=== PATIENT | male | born 1965 ===

== ENCOUNTER 2019-04-07 05:41 | Inpatient (IN) | payer OTHER ==
[~2019-04-07] VITALS: Ht 177.8 cm; Wt 106.6 kg
--- NOTE | 2019-04-07 05:55 | NUR ---
PATIENT ARRIVED IN UNIT. AO X 3, ABLE TO MAKE NEEDS KNOWN. NO ACUTE DISTRESS NOTED. DENIES ANY PAIN AT THIS TIME. SKIN INTACT. PATIENT SIGNED CONSENT FOR PROCEDURE, ANESTHESIA AND BLOOD TRANSFUSION. VS TAKEN. WAITING FOR RADIOISOTOPE PRODUCTION OPERATOR BY OR.
[2019-04-07] MEDS ORDERED: BACITRACIN 50000 UNITS/VIAL ONE (05:59)
[2019-04-07] MEDS ORDERED: ANESTHESIA TRAY IN PYXIS 1 EA TRAY MC ONE (05:59)
[2019-04-07 06:00] VITALS: BP 154/109
[2019-04-07] MEDS ORDERED: SCOPOLAMINE HBR 1 EA PATCH.TD72 TD ONE (06:26)
[2019-04-07] MEDS ORDERED: MIDAZOLAM HCL 2 MG/2ML VIAL ONE (06:26)
[2019-04-07] MEDS ORDERED: MORPHINE SULFATE/PF 10 MG/10ML (1MG/ML) AMPUL ONE (06:27)
[2019-04-07] MEDS ORDERED: FENTANYL PF 100MCG/2ML AMPUL ONE (06:27)
--- NOTE | 2019-04-07 06:30 | NUR ---
PATIENT PICKED UP BY OR STAFF. IN STABLE CONDITION. BROUGHT DOWN VIA BED.
--- NOTE | 2019-04-07 07:30 | NUR ---
RN MS NOTES Patient remains in surgery at this time.
[2019-04-07] MEDS ORDERED: TRANEXAMIC ACID 3,000 MG in SODIUM CHLORIDE IRRIG SOLUTION 70 ML IR ONE (08:00)
[2019-04-07] MEDS ORDERED: DULCOLAX 10 MG/SUPP.RECT RC PRN (09:30)
[2019-04-07] MEDS ORDERED: TYLENOL 650 MG TABLET PO PRN (09:30)
[2019-04-07] MEDS ORDERED: COLACE 250 MG CAPSULE PO PRN (09:30)
[2019-04-07] MEDS ORDERED: ZOFRAN 4mg/2ML IV PRN (09:30)
[2019-04-07] MEDS ORDERED: SENOKOT 8.6 MG TABLET PO PRN (09:30)
[2019-04-07] MEDS ORDERED: HYDROCODONE/APAP 5/325MG 1 EACH TABLET PO PRN (09:30)
[2019-04-07] MEDS ORDERED: NALOXONE HCL 0.4 MG/ML AMPUL IV PRN (10:00)
[2019-04-07] MEDS ORDERED: diphenhydrAMINE HCL 25 MG CAPSULE PO PRN (10:00)
[2019-04-07] MEDS: IV D5/0.45 NACL 1,000 ML IV PRN ×2 (10:09→20:17)
[2019-04-07] MEDS ORDERED: SIMV20TA6 PO (11:23)
[2019-04-07] MEDS ORDERED: BENA20TA9 PO (11:23)
[2019-04-07] MEDS ORDERED: TRAM50TA2 PO (11:23)
[2019-04-07] MEDS: HYDROMORPHONE 1 MG/1 ML DISP.SYRIN IV PRN ×3 (11:49→21:16)
[2019-04-07] MEDS: ANCEF 1 G in IV D5W 50 ML IV SCH ×2 (15:00→22:47)
[2019-04-07 15:59] VITALS: BP 125/68
[2019-04-07] MEDS ORDERED: ASPIRIN 325 MG TABLET PO SCH (17:00)
--- NOTE | 2019-04-07 18:39 | NUR ---
RN MS CLOSING NOTES Patient remains on room air, no sob noted, a/o x4 and denies pain at this time. Patient stated he wants to stay on the CPM til 1999. Patient to remains on tele for 24 hours. Bed at the lowest setting, call light within reach, side rails up x2. Will give report to NOC RN for [facility] bedside.
--- NOTE | 2019-04-07 19:25 | NUR ---
RN Notes Received patient awake, alert and oriented x4, on room air and tolerated well. Right knee on CPM machine at 40degree flexion and tolerated well with very mild pain as verbalized by the patient. IV access on left hand patent and intact with ongoing IVF infusing well. Plan of care discussed with the patient and verbalized understanding. Safety measures and fall precaution in place. Kept comfortable and attended with call light within reach. Will continue to monitor patient.
[2019-04-07 20:03] VITALS: BP 120/57
--- NOTE | 2019-04-07 21:16 | NUR ---
RN Notes Patient complains of pain on his right knee, 03/01. Dilaudid 1mg given IVP and tolerated well. Will continue to monitor patient.
[2019-04-07 22:00] VITALS: BP 120/57
[2019-04-07] MEDS ORDERED: AMBIEN 5 MG TABLET PO PRN (22:00)
[2019-04-08] MEDS: HYDROMORPHONE 1 MG/1 ML DISP.SYRIN IV PRN ×2 (01:28→07:12)
--- NOTE | 2019-04-08 01:28 | NUR ---
RN Notes Patient awake, verbalized pain on right knee,8/10. Dilaudid 1mg given IVP. Will continue to monitor.
[2019-04-08] MEDS: IV D5/0.45 NACL 1,000 ML IV PRN (04:56)
--- NOTE | 2019-04-08 05:56 | NUR ---
RN Notes Patient tolerated CPM with tolerable pain. Kept right knee elevated on 2 pillows with cold compress on. Patient has allergy to tylenol, norco cannot be given because it has acetamenophen. Pain managed with dilaudid 1 mg IVP with good releif. Vital signs stable, afebrile. Safety measures and fall precaution observed. Will continue to monitor and will endorse accordingly.
--- NOTE | 2019-04-08 07:12 | NUR ---
MS/RN - Assessment Patient is awake, A/O x 4, reports severe pain to right knee op site PA=8/10, medicated with Dilaudid 1 mg IVP, afebrile, stable on room air. Skin is intact except for right knee surgical incision POD#1 right knee arthrotomy with total knee arthroplasty with Dr. Oakes. Right knee dressing is c/d/i without drainage, discharge, surrounding erythema, or excess warmth. Skin on BLE is warm to touch, negative calf tenderness, negative for edema, sensation on both lower ext are intact, full weight bearing on the RLE, knee brace when OOB. IVF D5 1/2 NS at 125 ml/hr infusing well on the left hand with no signs of infiltration. Fall precautions maintained. All needs attended and met. Discussed plan of care with patient and in agreement. Will continue with current medical management.
[2019-04-08 08:00] VITALS: BP 142/74
[2019-04-08] MEDS: RIVAROXABAN 10 MG TABLET PO SCH (08:13)
--- NOTE | 2019-04-08 08:15 | NUR ---
MS/RN - PT treatment Patient was pre-medicated prior to activity, able to ambulate with PT, CPM this afternoon per pt's request.
[2019-04-08] MEDS ORDERED: ASPIRIN 325 MG TABLET PO SCH (09:00)
--- NOTE | 2019-04-08 10:02 | NUR ---
MS/RN - Ortho Seen and examined by JASMIN Nelson of Dr. Oakes, stable per ortho to d/c home today after pm PT, okay for nurse to change dressing prior to d/c if going home today, f/u with Dr Oakes in 1-2 weeks.
[2019-04-08] MEDS: HYDROCODONE/APAP 5/325MG 1 EACH TABLET PO PRN ×2 (13:00→20:52)
[2019-04-08] MEDS ORDERED: HYDROMORPHONE INJ 0.5 MG/0.5 ML SYRINGE IV PRN (14:00)
[2019-04-08] MEDS ORDERED: HYDROMORPHONE 1 MG/1 ML DISP.SYRIN IV PRN (14:11)
--- NOTE | 2019-04-08 14:32 | NUR ---
MS/RN - Notes Patient stated "I don't think I can manage to go home today, I didn't do well with PT activity this afternoon session."
--- NOTE | 2019-04-08 15:45 | NUR ---
MS/RN - Notes Patient noted with elevated temp 101.6F, ice pack and cool cloth applied, encourage to increase fluid intake, light weight bedding. Patient is allergic to Tylenol.
[2019-04-08 16:00] VITALS: BP 126/74
[2019-04-08 16:48] LABS: HEMOGLOBIN 13.1 g/dL (13.5-17.5)
--- NOTE | 2019-04-08 17:00 | NUR ---
MS/RN - MD order Dr. uNnez made aware of elevated temp 101.6F with order to do blood culture x 2 15 mins apart, continue with cooling measures.
--- NOTE | 2019-04-08 18:21 | NUR ---
MS/RN - End of shift summary Patient still febrile latest temp 100.0F, continue cooling measures, right knee pain more controlled with Dilaudid 1 mg IVP alternating with [place] 2 tabs, not in any form of distress. All needs attended and met. Will continue with current plan of care.
--- NOTE | 2019-04-08 19:25 | NUR ---
RN Notes Received patient awake, alert with HOB slightly elevated, on room air and tolerated well. Pain on right knee at tolerable level at this time, 09/29. Right knee kept elevated on 2 pillows, dressing clean, dry and intact. IV access on left hand patent and intact. Noted with low grade fever, Temp 100.3. Cooling measures given. Plan of care discussed with the patient and verbalized understanding. Safety measures in place. Will continue to monitor patient.
[2019-04-08 20:00] VITALS: BP 163/75
--- NOTE | 2019-04-08 20:52 | NUR ---
RN Notes Patient complains of pain on right knee 01/29, [place] 5/325mg tab given PO and tolerated well. Will continue to monitor.
[2019-04-08 22:00] VITALS: BP 163/75
[2019-04-09] MEDS: HYDROCODONE/APAP 5/325MG 1 EACH TABLET PO PRN ×3 (03:30→18:38)
--- NOTE | 2019-04-09 03:30 | NUR ---
RN Notes Patient awake, complains of right knee pain, 01/29. [place] 5/325 mg 2tabs given PO and tolerated well. Latest temp 98.3. Will continue to monitor.
--- NOTE | 2019-04-09 05:57 | NUR ---
RN Notes Latest temp 98.3, controlled with cooling measures. Pain managed with [place] 2 tabs. Right knee kept elevated on pillows. Voiding well with adequate amount. Denies nausea and vomiting. Safety measures maintained. All needs attended. Will continue to monitor.
[2019-04-09 06:09] LABS: BASOPHILS % (AUTO) 0.1 % (0.0-2.0); EOSINOPHILS % (AUTO) 0.6 % (0.0-6.0); HEMATOCRIT 38 % (39-51); HEMOGLOBIN 12.7 g/dL (13.5-17.5); LYMPHOCYTES # (AUTO) 0.9 /CMM (0.8-4.8); MEAN CORPUSCULAR HGB CONC 34 g/dl (31.0-36.0); MEAN CORPUSCULAR VOLUME 94 fL (80-96); MONOCYTES # (AUTO) 1.6 /CMM (0.1-1.30); MONOCYTES % (AUTO) 10.6 % (2.0-12.0); NEUTROPHILS # (AUTO) 12.2 /CMM (1.8-8.9); NEUTROPHILS % (AUTO) 82.7 % (43.0-81.0); PLATELET COUNT (AUTO) 171 /CMM (150-450); WHITE BLOOD COUNT (AUTO) 14.7 K/uL (4.3-11.0)
[2019-04-09 06:57] LABS: CALCIUM, SERUM 8.8 mg/dL (8.5-10.1); CREATININE 0.9 mg/dL (0.6-1.3); MAGNESIUM 1.9 mg/dL (1.8-2.4); PHOSPHORUS 2.4 mg/dL (2.5-4.9); POTASSIUM 3.7 mmol/L (3.5-5.1)
--- NOTE | 2019-04-09 07:30 | NUR ---
RN MS NOTES PT IN BED, AWAKE, ALERT AND ORIENTED, NOT IN DISTRESS, STATED THAT HIS PAIN AT RIGHT KNEE IS BETTER AT 4/10, CALL LIGHT WITHIN REACH.
[2019-04-09 08:11] VITALS: BP 126/68
[2019-04-09] MEDS ORDERED: VANCOMYCIN HCL 1.25 GM in IV D5W 250 ML IV SCH (10:30)
[2019-04-09] MEDS ORDERED: FEE PK DOSING 1 MIN EA MC ONE (10:33)
--- NOTE | 2019-04-09 10:41 | NUR ---
RN MS NOTES PT SEEN AND EXAMINED BY DR. BONILLA, PLAN OF CARE DISCUSSED WITH PT, VERBALIZED UNDERSTANDING, ORDERS GIVEN, NOTED AND CARRIED OUT.
[2019-04-09] MEDS ORDERED: diphenhydrAMINE HCL ELIX 25 MG/10 ML UDC PO PRN (11:00)
[2019-04-09] MEDS ORDERED: NEUTRA PHOS 1 POWD.PACKET PO ONE (11:30)
[2019-04-09] MEDS: ALBUTEROL HALF STRENGTH 1.25 MG/3 ML VIAL.NEB NEB SCH ×3 (11:34→20:02)
[2019-04-09] MEDS: CEFTRIAXONE 1 G in IV D5W 50 ML IV SCH (11:45)
[2019-04-09] MEDS: VANCOMYCIN 1.25 GM in IV D5W 500 ML IV SCH (12:31)
--- NOTE | 2019-04-09 15:00 | NUR ---
PT SLEEPING COMFORTABLY, PT REFUSED RESP TX AFTER BEING WOKEN UP. WILL CONT TO MONITOR Addendum: 04/09/19 at 1501 by BRODY BOWERS RT Amended: Links added.
[2019-04-09 16:00] VITALS: BP 140/69
[2019-04-09] MEDS: RIVAROXABAN 10 MG TABLET PO SCH (16:25)
--- NOTE | 2019-04-09 18:12 | NUR ---
RN MS NOTES PT IN BED, RESTING, NO COMPLAINT OF PAIN AT THIS TIME, RESPIRATIONS NORMAL, INCENTIVE SPIROMETRY INSTRUCTIONS PROVIDED, VERBALIZED UNDERSTANDING, CALL LIGHT WITHIN REACH, ASSISTED TO BATHROOM NEEDED, DUE MEDS GIVEN ORDERED, SEEN BY PHYSICAL THERAPIST TODAY.
--- NOTE | 2019-04-09 19:20 | NUR ---
MS RN NOTES RECEIVED ON BED A/O X4,WATCHING TV PROGRAM,S/P RIGHT KNEE ARTHROTOMY WITH TKA ON 04/07/19.DRESSING INTACT AND DRY .PER PATIENT,HE WAS ABLE TO AMBULATE WITH PT TODAY.DENIES [PAIN AT THE MOMENT,WAS JUST MEDICATED WITH NORCO AT 1830 BY DAY NURSE GAL.CALL LIGHT IN REACH,NEEDS ANTICIPATED.
[2019-04-09 20:00] VITALS: BP 136/68
--- NOTE | 2019-04-09 23:05 | NUR ---
MS RN NOTES AWAKE,C/O PAIN ON LEFT KNEE,MEDICATED WITH NOR[place] 5/325MG,1 TAB PO ORDERED
--- NOTE | 2019-04-10 | NUR ---
MS RN NOTES VANCOMYCIN IV HUNG,INFUSING AT THIS TIME.
[2019-04-10] MEDS: VANCOMYCIN 1.25 GM in IV D5W 500 ML IV SCH ×2 (00:16→12:25)
--- NOTE | 2019-04-10 01:00 | NUR ---
MS RN NOTES PAIN ON LEFT KNEE SUBSIDED.AWAKE WATCHING TV PROGRAM
[2019-04-10] MEDS: HYDROCODONE/APAP 5/325MG 1 EACH TABLET PO PRN ×2 (02:27→10:51)
--- NOTE | 2019-04-10 02:27 | NUR ---
MS RN NOTES AWAKE,C/O LEFT KNEE PAIN 6/10 ON PAIN SCALE,NOR[place] 5/325MG,1 TAB PO GIVEN
[2019-04-10 07:15] LABS: BASOPHILS # (AUTO) 0.1 /CMM (0.0-0.2); BASOPHILS % (AUTO) 0.6 % (0.0-2.0); EOSINOPHILS % (AUTO) 4.8 % (0.0-6.0); HEMATOCRIT 37 % (39-51); HEMOGLOBIN 12.3 g/dL (13.5-17.5); LYMPHOCYTES # (AUTO) 1.8 /CMM (0.8-4.8); LYMPHOCYTES % (AUTO) 11.3 % (20.0-44.0); MEAN CORPUSCULAR HGB CONC 33 g/dl (31.0-36.0); MEAN CORPUSCULAR VOLUME 94 fL (80-96); MONOCYTES # (AUTO) 1.2 /CMM (0.1-1.30); MONOCYTES % (AUTO) 7.7 % (2.0-12.0); NEUTROPHILS # (AUTO) 12.2 /CMM (1.8-8.9); NEUTROPHILS % (AUTO) 75.6 % (43.0-81.0); PLATELET COUNT (AUTO) 202 /CMM (150-450); RED BLOOD CELL COUNT(AUTO) 3.93 MIL/uL (4.5-6.0); WHITE BLOOD COUNT (AUTO) 16.1 K/uL (4.3-11.0)
--- NOTE | 2019-04-10 07:30 | NUR ---
RN MS NOTES PT IN BED, AWAKE, ALERT AND ORIENTED, NO COMPLAINT OF PAIN AT THIS TIME, RESPIRATIONS NORMAL, CALL LIGHT WITHIN REACH, NEEDS ATTENDED.
[2019-04-10 07:38] LABS: CALCIUM, SERUM 8.9 mg/dL (8.5-10.1); MAGNESIUM 2.1 mg/dL (1.8-2.4); PHOSPHORUS 3.8 mg/dL (2.5-4.9); POTASSIUM 3.5 mmol/L (3.5-5.1)
[2019-04-10] MEDS: ALBUTEROL HALF STRENGTH 1.25 MG/3 ML VIAL.NEB NEB SCH ×4 (07:51→20:12)
[2019-04-10 08:00] VITALS: BP 115/68
[2019-04-10] MEDS: CEFTRIAXONE 1 G in IV D5W 50 ML IV SCH (10:21)
--- NOTE | 2019-04-10 13:00 | NUR ---
RN MS NOTES PT IN BED, AWAKE ALERT AND ORIENTED, PAIN MEDS GIVEN ORDERED, NOT IN DISTRESS, SEEN BY PHYSICAL THERAPIST, ASSISTED WITH NEEDS.
[2019-04-10 15:45] VITALS: BP 117/62
[2019-04-10] MEDS ORDERED: HYDROCODONE/APAP 10/325MG 1 EA TABLET PO PRN (16:30)
[2019-04-10] MEDS: AMOX/CLAVULANATE 875 MG TABLET PO SCH (17:36)
[2019-04-10] MEDS: RIVAROXABAN 10 MG TABLET PO SCH (17:40)
--- NOTE | 2019-04-10 18:23 | NUR ---
RN MS NOTES PT IN BED, AWAKE, ALERT AND ORIENTED, PAIN MEDS GIVEN ORDERED, NOT IN DISTRESS, IV SITE AT LEFT HAND LEAKED, ATTEMPTED TO REINSERT BUT UNSUCCESSFUL, PT WAS MD JENNIFER AWARE, PER DR. BONILLA, NO NEED FOR MIDLINE, IV ATB CHANGED TO PO, ALL NEEDS ATTENDED.
[2019-04-10 20:00] VITALS: BP 114/57
--- NOTE | 2019-04-10 20:00 | NUR ---
MS BEAN INITIAL NOTES RECEIVED REPORT FROM AM NURSE GAL AND SEEN PT IN BED AWAKE AND ALERT WATCHING TV AT THIS TIME. DENIES ANY PAIN OR ANY DISCOMFORT. NO HEPLOCK ORDERED PER AM NURSE. DRESSING DRY AND INTACT. KEPT HIM WARM AND COMFORTABLE AT ALL TIMES. WILL CONTINUE MONITORING. PLACE CALL LIGHT AT REACH.
--- NOTE | 2019-04-10 21:11 | NUR ---
MS BEAN NOTES C/O RIGHT LOWER LEG PAIN, NOR[place] TABLET GIVEN ORDERED. APPLIED ALSO ICE PACK FOR PT COMFORT. SNACKS ALSO SERVED. WILL CONTINUE MONITORING. PLACE CALL LIGHT AT REACH.
--- NOTE | 2019-04-11 00:13 | NUR ---
MS TRANSMITTER ENGINEER NOTES PT RESTING AT THIS TIME BUT AROUSE TO TOUCH. HE STATED FEEL MUCH BETTER. KEPT HIM COMFORTABLE AT ALL TIMES. PLACE CALL LIGHT AT REACH. WILL CONTINUE MONITORING.
[2019-04-11 06:51] LABS: BASOPHILS % (AUTO) 0.4 % (0.0-2.0); EOSINOPHILS % (AUTO) 6.7 % (0.0-6.0); HEMATOCRIT 34 % (39-51); HEMOGLOBIN 11.4 g/dL (13.5-17.5); LYMPHOCYTES # (AUTO) 1.1 /CMM (0.8-4.8); LYMPHOCYTES % (AUTO) 9.3 % (20.0-44.0); MEAN CORPUSCULAR HGB CONC 33 g/dl (31.0-36.0); MEAN CORPUSCULAR VOLUME 94 fL (80-96); MONOCYTES # (AUTO) 1.2 /CMM (0.1-1.30); MONOCYTES % (AUTO) 10.1 % (2.0-12.0); NEUTROPHILS # (AUTO) 9.1 /CMM (1.8-8.9); NEUTROPHILS % (AUTO) 73.5 % (43.0-81.0); PLATELET COUNT (AUTO) 225 /CMM (150-450); RED BLOOD CELL COUNT(AUTO) 3.65 MIL/uL (4.5-6.0); WHITE BLOOD COUNT (AUTO) 12.3 K/uL (4.3-11.0)
[2019-04-11 07:06] LABS: CALCIUM, SERUM 9.2 mg/dL (8.5-10.1); MAGNESIUM 2.2 mg/dL (1.8-2.4); PHOSPHORUS 4.6 mg/dL (2.5-4.9); POTASSIUM 3.5 mmol/L (3.5-5.1)
--- NOTE | 2019-04-11 07:20 | NUR ---
MS RN NOTES PATIENT IN BED ALERT ORIENTED X 4. NO ACUTE DISTRESS NOTED. BREATHING UNLABORED. SAFETY MEASURES IN PLACE. CALL LIGHT WITHIN REACH. WILL CONTINUE TO MONITOR ACCORDINGLY.
--- NOTE | 2019-04-11 07:42 | NUR ---
ms flight engineer closing notes pt awake and alert watching tv stable christel the night and all needs met. kept him comfortable at all times. will endorse scott holland nurse for continuity of care.
[2019-04-11] MEDS: ALBUTEROL HALF STRENGTH 1.25 MG/3 ML VIAL.NEB NEB SCH ×2 (07:56→11:29)
[2019-04-11] MEDS: AMOX/CLAVULANATE 875 MG TABLET PO SCH (08:21)
[2019-04-11 08:35] VITALS: BP 117/74
--- NOTE | 2019-04-11 09:52 | NUR ---
MS WHEAT FARMER NOTES PATIENT SEEN AND EVALUATED BY DR ROSANGELA BONILLA WITH NEW ORDERS MADE, NOTED AND CARRIED OUT.
[2019-04-11] MEDS ORDERED: AMOX-430 PO (09:53)
--- NOTE | 2019-04-11 14:54 | NUR ---
MS PRODUCT REPRESENTATIVE NOTED PATIENT DISCHARGE HOME WITH [facility] WITH STABLE VITAL SIGNS. NO ACUTE DISTRESS NOTED. BREATHING UNLABORED. NO FACIAL GRIMACING NOTED. NO IV ACCESS. DISCHARGE INSTRUCTIONS GIVEN TO THE PATIENT INCLUDING FOLLOW UP APPOINTMENT WITH PRIMARY DOCTOR AND DR. TIERNEY, NEW PRESCRIPTIONS AND KNEE IMMOBILIZER. ALL BELONGINGS ACCOUNTED FOR. RIGHT KNEE DRESSING CLEAN, DRY AND INTACT, NO REDNESS OR SWELLING AROUND THE AREA. PATIENT REFUSED PHOTO TAKEN. ASSISTED TO THE LOBBY, PICKED UP BY SISTER VIA PRIVATE CAR IN STABLE CONDITION.
== END 2019-04-11 16:13 | disposition home health service (06) | DRG 302 ==
LOC: DS 05:41 → MED 05:52 → EDSTATUS 12:37
PROVIDERS: ADMIT Nurse Practitioner Acute Care; ATTEND Internal Medicine
PROC: 0SRC0J9 Replacement of Right Knee Joint with Synthetic Substitute, Cemented, Open Approach (ICD-10-PCS; principal; 2019-04-07)
DX: M12.561 Traumatic arthropathy, right knee (principal); E66.9 Obesity, unspecified; I10 Essential (primary) hypertension; J44.9 Chronic obstructive pulmonary disease, unspecified; E78.5 Hyperlipidemia, unspecified; I25.2 Old myocardial infarction; J45.909 Unspecified asthma, uncomplicated; Z80.1 Family history of malignant neoplasm of trachea, bronchus and lung; Z82.49 Family history of ischemic heart disease and other diseases of the circulatory system; Z83.0 Family history of human immunodeficiency virus [HIV] disease; Z98.890 Other specified postprocedural states
CPT/HCPCS: 36415; 71045-TC; 80048-TC; 80202-TC; 83735-TC; 84100-TC; 85025-TC; 85027-TC; 85652-TC; 86140-TC; 86850-TC; 87040-TC; 87081-TC; 88305-TC; 88311-TC; 94799-TC; 97110-TC; 97116-TC; 97530-TC; 97760-TC; A4217; C1713; G0378; J0690; J0696; J1100; J1170; J2001; J2250; J2274; J2704; J3010; J3370; J3490; J7060; L1830; Q0163